=== PATIENT | male | born 1980 | race Caucasian/White ===

== ENCOUNTER 2024-05-03 20:21 | Emergency (ER) | payer MEDICAID ==
[~2024-05-03] VITALS: Ht 182.9 cm; Wt 88.4 kg
[2024-05-03 21:20] VITALS: O2SAT 99
[2024-05-04 02:54] VITALS: BP 122/71; PULSE 60; RESP 18; TEMP 98.5
== END 2024-05-04 02:55 | disposition home or self-care (01) ==
LOC: ER 20:21
DX: H33.21 Serous retinal detachment, right eye (principal); R51.9 Headache, unspecified
CPT/HCPCS: 99281